=== PATIENT | female | born 1945 | race Caucasian/White ===

== ENCOUNTER 2017-10-29 05:52 | Day surgery (SDC) | payer BC ==
[2017-10-29] MEDS ORDERED: PROPOFOL 60 ML (08:06)
== END 2017-10-29 11:15 | disposition home or self-care (01) ==
LOC: GIL 05:52
DX: Z12.11 Encounter for screening for malignant neoplasm of colon (principal); K29.50 Unspecified chronic gastritis without bleeding; B37.81 Candidal esophagitis; K64.4 Residual hemorrhoidal skin tags; K64.8 Other hemorrhoids; I10 Essential (primary) hypertension; E78.5 Hyperlipidemia, unspecified; E11.9 Type 2 diabetes mellitus without complications
CPT/HCPCS: 43239; 88305; 88312; 88313